=== PATIENT | female | born 1955 | race Caucasian/White ===

== ENCOUNTER 2020-03-29 09:40 | Outpatient (CLI) | payer MEDICARE, BC, SELFPAY ==
--- NOTE | 2020-03-29 11:30 | NEURO_ITS ---
Patient Number: [id number] Impression: # Complains of numbness of hands. # Bilateral Carpal Tunnel Syndrome, sensory more than motor. # No ulnar neuropathy. # Normal needle/EMG exam. Nerve Conduction Studies Anti Sensory Summary Table Stim Site NR Peak (ms) P-T Amp (?V) Site1 Site2 Delta-P (ms) Dist (cm) Delvin (m/s) Left Median Anti Sensory (2-3nd Digit) Wrist 5.2 17.1 Wrist 2-3nd Digit 5.2 14.0 27 Wrist 5.6 10.7 Wrist 2-3nd Digit 5.2 14.0 27 Right Median Anti Sensory (2-3nd Digit) Wrist 4.6 13.1 Wrist 2-3nd Digit 4.6 14.0 30 Wrist 4.8 38.4 Wrist 2-3nd Digit 4.6 14.0 30 Left Radial Anti Sensory (Base 1st Digit) Wrist 2.4 14.7 Wrist Base 1st Digit 2.4 0.0 Right Radial Anti Sensory (Base 1st Digit) Wrist 2.2 10.5 Wrist Base 1st Digit 2.2 0.0 Left Ulnar Anti Sensory (5th Digit) Wrist 2.9 55.2 Wrist 5th Digit 2.9 14.0 48 Right Ulnar Anti Sensory (5th Digit) Wrist 3.0 40.0 Wrist 5th Digit 3.0 14.0 47 Motor Summary Table Stim Site NR Onset (ms) O-P Amp (mV) Site1 Site2 Delta-0 (ms) Dist (cm) Delvin (m/s) Left Median Motor (Abd Poll Brev) Wrist 3.8 2.3 Elbow Wrist 5.3 28.0 53 Elbow 9.1 1.2 Right Median Motor (Abd Poll Brev) Wrist 4.0 3.7 Elbow Wrist 6.9 28.0 41 Elbow 10.9 1.2 Left Ulnar Motor (Abd Dig Minimi) Wrist 2.7 6.9 A Elbow Wrist 5.3 29.0 55 A Elbow 8.0 5.5 Right Ulnar Motor (Abd Dig Minimi) Wrist 3.0 5.1 A Elbow Wrist 5.6 29.0 52 A Elbow 8.6 4.0 F Wave Studies NR F-Lat (ms) L-R F-Lat (ms) Left Median (Mrkrs) (Abd Poll Brev) 29.20 0.59 Right Median (Mrkrs) (Abd Poll Brev) 29.79 0.59 Left Ulnar (Mrkrs) (Abd Dig Min) 29.09 0.86 Right Ulnar (Mrkrs) (Abd Dig Min) 29.96 0.86 EMG Side Muscle Nerve Root Ins Act Fibs Amp Dur Recrt Comment Right 1stDorInt Ulnar C8-T1 Nml Nml Nml Nml Nml Right Ext Indicis Radial (Post Int) C7-8 Nml Nml Nml Nml Nml Right Ext Digitorum Radial (Post Int) C7-8 Nml Nml Nml Nml Nml Right BrachioRad Radial C5-6 Nml Nml Nml Nml Nml Right PronatorTeres Median C6-7 Nml Nml Nml Nml Nml Right Abd Poll Brev Median C8-T1 Nml Nml Nml Nml Nml Left 1stDorInt Ulnar C8-T1 Nml Nml Nml Nml Nml Left Ext Indicis Radial (Post Int) C7-8 Nml Nml Nml Nml Nml Left Ext Digitorum Radial (Post Int) C7-8 Nml Nml Nml Nml Nml Left BrachioRad Radial C5-6 Nml Nml Nml Nml Nml Left PronatorTeres Median C6-7 Nml Nml Nml Nml Nml Left Abd Poll Brev Median C8-T1 Nml Nml Nml Nml Nml MTDD
== END 2020-03-29 09:41 | disposition home or self-care (01) ==
PROVIDERS: PCP Physician Assistant; Visit Provider Physician Assistant
DX: R20.2 Paresthesia of skin (principal); G56.03 Carpal tunnel syndrome, bilateral upper limbs
CPT/HCPCS: 95886; 95911

== ENCOUNTER → 2021-01-23 00:21 | Outpatient (CLI) | payer MEDICARE, MEDICAID, SELFPAY ==
[2021-01-23 18:31] LABS: SARS-CoV-2 RNA PCR Negative
== END ==
PROVIDERS: PCP Physician Assistant; Visit Provider Internal Medicine Gastroenterology
DX: Z01.812 Encounter for preprocedural laboratory examination (principal); Z20.822 Contact with and (suspected) exposure to COVID-19
CPT/HCPCS: C9803; U0003; U0005

== ENCOUNTER 2021-01-26 01:40 | Day surgery (SDC) | payer MEDICARE, MEDICAID, SELFPAY ==
[2021-01-16 09:58] VITALS: BMI 31.1
[2021-01-26 09:41] VITALS: BP 157/82; PULSE 76; RESP 18; TEMP 36.4; O2SAT 99
[2021-01-26] MEDS: LACTATED RINGERS 1,000 ML 150 ML IV CONT (09:45)
--- NOTE | 2021-01-26 10:35 | WPDANESEPPF ---
Anes - Initial Pre Proc Eval Procedure: Operation Date: 01/26/21 11:00 Proposed Procedures p Screening Colonoscopy - Serge Foster MD Date/Time: 01/26/21 10:35 Surgeon: Serge Foster MD Pre Op Diagnosis: Neoplasm Screening Patient Data Age: 65 Gender: F Height: 5 ft 7 in Weight: 95.9 kg Last Vital Signs Temp 97.5 F L 01/26/21 09:41 Pulse 76 01/26/21 09:41 Resp 18 01/26/21 09:41 BP 157/82 H 01/26/21 09:41 Pulse Ox 99 01/26/21 09:41 Allergies Allergy/AdvReac Type Severity Reaction Status Date / Time No Known Allergies Allergy Verified 01/26/21 09:40 Home Medications Medication Instructions Recorded Confirmed Type levothyroxine 75 mcg PO DAILY 01/16/21 01/26/21 History rosuvastatin 20 mg PO DAILY 01/16/21 01/26/21 History Patient hx anesthesia problems: none Family hx anesthesia problems: none [facility] Past Medical History Medical History (Updated 01/26/21 @ 10:32 by Jose Eduardo Nichole MD) Hyperlipidemia Hypothyroid Social History Social History Smoking status: Never smoker Alcohol intake: never Substance use: never Substance use type: does not use Living arrangements: with family Spiritual care concerns: No Anes - Eval Final PreProcedure Day of Procedure 01/26/21 10:35 Patient weight: overweight Heart: regular rate and rhythm Lungs: clear to auscultation Airway: Mallampati scale class II Neurological: alert and oriented Last oral intake: >/= 8 hours ASA classification: II Emergent: no Anesthetic plan: proceed Anesthesia type and monitoring: general GIVS and standard monitoring Informed Consent: The patient's anesthetic plan and its attendant risks and benefits were discussed with the patient/family/POA. Questions were solicited and answers provided to the satisfaction of the patient/family/POA.
--- NOTE | 2021-01-26 10:56 | PM.HPGS ---
History of Present Illness History of Present Illness Consent: Risks, benefits, and alternatives have been discussed and questions answered. Patient agrees to proceed with procedure. Chief complaint: Neoplasm Screening Narrative: Nisa Richter is a 65 year old female here for first screening colonoscopy Review of Systems Constitutional: Constitutional: Denies headache(s) and Denies weakness Eyes: Eyes: Denies blurry vision ENT: Reports Normal hearing present, Denies headache(s) and Denies neck pain Cardiovascular: Cardiovascular: Denies chest pain and Denies dyspnea Respiratory: Respiratory: Denies dyspnea Gastrointestinal: Gastrointestinal: Reports no additional gastrointestinal complaints Genitourinary: Genitourinary: Denies dysuria Musculoskeletal: Musculoskeletal: Denies neck pain Integumentary/Breasts: Skin/Breast: Denies dry skin Neurologic: Reports Normal hearing present, Denies headache(s) and Denies weakness Psychiatric: Psychiatric: Denies anxiety Endocrine: Endocrine: Denies change in body appearance Hematologic/Lymphatic: Hematologic/Lymphatic: Denies easy bleeding Allergic/Immunologic: Allergic/Immunologic: Denies urticaria PMFSH Past Medical History Medical History (Updated 01/26/21 @ 10:56 by Serge Foster MD) Colon cancer screening Hyperlipidemia Hypothyroid Social History Social History Smoking status: Never smoker Alcohol intake: never Substance use: never Substance use type: does not use Living arrangements: with family Spiritual care concerns: No Meds Home Medications and Allergies Home Medications Medication Instructions Recorded Confirmed Type levothyroxine 75 mcg PO DAILY 01/16/21 01/26/21 History rosuvastatin 20 mg PO DAILY 01/16/21 01/26/21 History Allergies Allergy/AdvReac Type Severity Reaction Status Date / Time No Known Allergies Allergy Verified 01/26/21 09:40 Vital Signs Vital Signs - 24 hr 01/26/21 09:41 Temperature 97.5 F L Pulse Rate 76 Respiratory Rate 18 Blood Pressure 157/82 H Pulse Oximetry 99 Exam Const: General: comfortable and no acute distress HENMT: General nose exam: Normal nares present Eyes: General: appearance normal, both eyes and all related structures Neck: Neck: no JVD Resp: Auscultation: clear to auscultation bilaterally Cardio: Rate: regular rate Rhythm: regular rhythm GI: Inspection: non-distended GI Palp: Yes Soft to palpation Skin: General skin exam: normal color Neuro: General: gait normal Speech: normal speech Extrem: General: normal to inspection Psych: Mental Status: mental status grossly normal Assessment and Plan Assessment and plan (1) Colon cancer screening: Code(s): Z12.11 - Encounter for screening for malignant neoplasm of colon Status: Acute Assessment and Plan: proceed with colonoscopy
[2021-01-26 11:20] VITALS: BP 101/55; PULSE 61; RESP 20; O2SAT 99
[2021-01-26 11:30] VITALS: BP 99/62; PULSE 60; RESP 20; O2SAT 99
[2021-01-26 11:40] VITALS: BP 129/61; PULSE 54; RESP 20; O2SAT 100
== END 2021-01-26 11:50 | disposition home or self-care (01) ==
PROVIDERS: PCP Physician Assistant; Visit Provider Internal Medicine Gastroenterology
PROC: 0DJD8ZZ Inspection of Lower Intestinal Tract, Via Natural or Artificial Opening Endoscopic (ICD-10-PCS; CPT 45378; principal; 2021-01-26 11:00)
DX: Z12.11 Encounter for screening for malignant neoplasm of colon (principal); D12.2 Benign neoplasm of ascending colon; E78.5 Hyperlipidemia, unspecified; E03.9 Hypothyroidism, unspecified; K64.8 Other hemorrhoids
CPT/HCPCS: 45385; 88305; C9803; J2704; J7120; U0003; U0005

== ENCOUNTER 2021-03-20 15:48 | Outpatient (CLI) | payer MEDICARE, SELFPAY ==
--- NOTE | ~2021-03-20 | MM_ITS ---
EXAMINATION: MM screening ernesto BI w marcela HISTORY: Screening mammogram TECHNIQUE: Craniocaudal and mediolateral oblique 3-D tomosynthesis images were obtained and synthetic 2-D images were generated. CAD analysis was submitted and interpreted. COMPARISON: No prior mammogram is available for comparison at this institution. BREAST PARENCHYMAL COMPOSITION: The breasts are almost entirely fatty. FINDINGS: There is no evidence of suspicious mass, calcification, or architectural distortion to sugg est malignancy in either breast. There has been no suspicious interval change. IMPRESSION: 1. No mammographic evidence of malignancy. 2. Recommend routine screening mammography in one year. BI-RADS Category 1: Negative Reviewed, dictated and finalized at location A.
== END 2021-03-20 15:49 | disposition home or self-care (01) ==
LOC: ANHIMG 15:51
PROVIDERS: PCP Physician Assistant; Visit Provider Physician Assistant
DX: Z12.31 Encounter for screening mammogram for malignant neoplasm of breast (principal)
CPT/HCPCS: 77063; 77067

== ENCOUNTER 2022-08-18 16:18 | Emergency (ER) | payer MEDICARE, SELFPAY ==
--- NOTE | 2022-08-18 16:23 | ED.URI ---
HPI - URI/Sore Throat General Chief Complaint: Upper Respiratory Infection Stated Complaint: COUGH/CONGESTION/R EARACHE Time Seen by Provider: 08/18/22 16:31 Source: patient and RN notes reviewed Mode of arrival: ambulatory Limitations: no limitations History of Present Illness HPI Narrative: 67-year-old female presents to the [facility] with complaints of cough, congestion and right ear pain. Patient reports that she has had cough congestion and allergy symptoms for about 6 weeks. Woke up this morning with a sharp pain to the right ear. Denies fevers. No chest pain or abdominal pain. Has tried multiple [id number] products to treat her allergies/cough over the last 6 weeks. Also reports nasal congestion MD elicited complaint: cough, rhinorrhea, nasal congestion and other (Right ear pain) Related Data Home Medications Medication Instructions Recorded Confirmed levothyroxine 75 mcg tablet 75 mcg PO DAILY 01/16/21 08/18/22 rosuvastatin 20 mg tablet 20 mg PO DAILY 01/16/21 08/18/22 Allergies Allergy/AdvReac Type Severity Reaction Status Date / Time No Known Allergies Allergy Verified 08/18/22 16:41 Review of Systems Review of Systems: All systems reviewed & are unremarkable except as noted in HPI and below Constitutional: Constitutional: Reports no additional constitutional complaints, Denies chills and Denies fever(s) Eyes: Eyes: Reports no additional eye complaints ENT: Reports as per HPI and Reports nasal congestion Cardiovascular: Cardiovascular: Reports no additional cardiovascular complaints Respiratory: Respiratory: Reports as per HPI, Reports chest congestion and Reports cough Gastrointestinal: Gastrointestinal: Reports no additional gastrointestinal complaints Musculoskeletal: Musculoskeletal: Reports no additional musculoskeletal complaints Integumentary/Breasts: Skin/Breast: Reports system reviewed and no additional complaints, except as docu Neurologic: Reports system reviewed and no additional complaints, except as documented Psychiatric: Psychiatric: Reports no additional psychiatric complaints Allergic/Immunologic: Allergic/Immunologic: Reports no additional allergic/immunologic complaints PMFSH Past Medical History Medical History Colon cancer screening Hyperlipidemia Hypothyroid Social History Social History Smoking status: Never smoker Alcohol intake: never Substance use: never Substance use type: does not use Spiritual care concerns: No Comments At the time of my signature, I reviewed and agree with the nursing past medical, surgical, social, and family history. There is no relevant family history pertinent to the patient complaint. Exam Const: General: healthy appearing, no acute distress, alert and well nourished Nutritional Appearance: well nourished Orientation/consciousness: patient oriented x3 Limitations: no limitations HENMT: Head: normal to inspection Ears: external ears normal, EAC's normal and TM abnormal bulging on the right, erythematous on the right and with loss of landmarks on the right Face/Nose/Sinus: Normal external nose present and Normal nares present Face and sinus: normal facial exam Mouth: Yes Normal oral and palatal mucosa present, Yes lip normal and Yes moist mucous membranes Throat: posterior oropharynx normal and uvula midline Eyes: General: appearance normal, both eyes and all related structures Pupils: Equal, round and reactive pupils present Neck: Neck: normal visual inspection, no lymphadenopathy and no meningeal signs Chest: Chest palpation & inspection: normal inspection of the chest Resp: Effort & Inspection: normal respiratory effort and no use of accessory muscles Auscultation: clear to auscultation bilaterally, no crackles, no rales, no rhonchi and no wheezes Cardio: Rate: regular rate Rhythm: regular rhyt
[2022-08-18 16:29] VITALS: BP 150/75; PULSE 70; RESP 16; TEMP 36.9; O2SAT 99
== END 2022-08-18 16:48 | disposition home or self-care (01) ==
PROVIDERS: Emergency Provider Nurse Practitioner; PCP Physician Assistant
DX: H66.91 Otitis media, unspecified, right ear (principal); J32.9 Chronic sinusitis, unspecified; E78.5 Hyperlipidemia, unspecified; E03.9 Hypothyroidism, unspecified
CPT/HCPCS: 99213; G0463

== ENCOUNTER 2023-07-01 07:18 | Outpatient (CLI) | payer MEDICARE, SELFPAY ==
--- NOTE | ~2023-07-01 | MM_ITS ---
EXAMINATION: MM screening ernesto BI w marcela HISTORY: Screening mammogram TECHNIQUE: Craniocaudal and mediolateral oblique 3-D tomosynthesis images were obtained and synthetic 2-D images were generated. CAD analysis was submitted and interpreted. COMPARISON: 03/20/2021 bilateral screening mammogram BREAST PARENCHYMAL COMPOSITION: The breasts are almost entirely fatty. FINDINGS: There is no evidence of suspicious mass, calcification, or architectural distortion to sugg est malignancy in either breast. There has been no suspicious interval change. IMPRESSION: 1. No mammographic evidence of malignancy. 2. Recommend routine screening mammography in one year. BI-RADS Category 1: Negative Reviewed, dictated and finalized at location A.
== END 2023-07-01 07:19 | disposition home or self-care (01) ==
PROVIDERS: PCP Physician Assistant; Visit Provider Physician Assistant
DX: Z12.31 Encounter for screening mammogram for malignant neoplasm of breast (principal)
CPT/HCPCS: 77063; 77067

== ENCOUNTER 2023-09-04 18:05 | Emergency (ER) | payer MEDICARE, SELFPAY ==
[2023-09-04 18:21] VITALS: BP 146/71; PULSE 64; RESP 16; TEMP 37.3; O2SAT 98
--- NOTE | 2023-09-04 18:35 | ED.GENADULT ---
HPI - General Adult General Chief complaint: Eye Problems Stated complaint: COLD SYMPTOMS/EYE DRAINAGE Source: patient Mode of arrival: ambulatory Limitations: no limitations History of Present Illness HPI narrative: 68-year-old female presented for complaint of bilateral eye redness and discharge for 2 days. Eyes are itching and burning with yellow drainage. Started on right eye, moved to left. Reports eyes were matted shut this morning. Also reports cold symptoms for one week and right ear popping. Denies vision changes, ear pain or drainage, tinnitus, dizziness, sob, wheezing, n/v/d/f/c. Taking Aleve-D for symptoms. Endorses exposure to grand children who have been sick. Related Data Home Medications Medication Instructions Recorded Confirmed levothyroxine 75 mcg tablet 75 mcg PO DAILY 01/16/21 09/04/23 rosuvastatin 20 mg tablet 20 mg PO DAILY 01/16/21 09/04/23 Allergies Allergy/AdvReac Type Severity Reaction Status Date / Time No Known Allergies Allergy Verified 09/04/23 18:18 Review of Systems Review of Systems: CONSTITUTIONAL: Denies body aches, fever, chills EYES:Endorses drainage redness and pain to eyes; Denies FB sensation, photophobia, visual changes or swelling ENT: reports rhinorrhea, denies sore throat, or otalgia. CARDIOVASCULAR: Denies chest pain, palpitations RESPIRATORY: Denies cough or dyspnea. GASTROINTESTINAL: Denies abdominal pain, nausea, vomiting, or diarrhea. SKIN: Denies rash, itching, or wounds. MUSCULOSKELETAL: Denies back pain, joint pain, or myalgia. NEUROLOGIC: Denies headache, numbness, tingling, or weakness. All systems reviewed & are unremarkable except as noted in HPI and below PMFSH Past Medical History Medical History Colon cancer screening Hyperlipidemia Hypothyroid Social History Social History Smoking status: Never smoker Alcohol intake: never Substance use: never Substance use type: does not use Living arrangements: with family Spiritual care concerns: No Comments At time of signature, I have reviewed and agree with nursing past medical, surgical, social and family history unless otherwise noted. Please see nursing chart for further information. There is no relevant family history pertinent to the presenting complaint Exam Narrative: GENERAL: Well-appearing HEAD: Normocephalic, atraumatic. EYES: bilateral conjunctival injection, and purulent drainage; mild right upper eye lid swelling and erythema. EOMI. PERRLA. Lid eversion shows no FB ENT: Mucous membranes pink and moist. No rhinorrhea. TMs normal bilaterally. Throat normal. Uvula midline. CHEST: Clear to auscultation. HEART: Regular rate and rhythm. ABDOMEN: Soft, nontender, nondistended SKIN: Warm, dry, no rash. Normal skin turgor. NEURO: No focal deficits. Alert and oriented x3 PSYCH: Normal affect. Course Course Emergency Course: Patient is aware of diagnosis, understands and agrees to treatment plan. Anticipatory guidance given. Patient agrees to follow-up as directed and is aware of reasons to seek care at the emergency department. Portions of this record may have been created with voice recognition software Level of Care: Express Care Visit Vital Signs Vital signs: Vital Signs Temperature 99.1 F 09/04/23 18:21 Pulse Rate 64 09/04/23 18:21 Respiratory Rate 16 09/04/23 18:21 Blood Pressure 146/71 H 09/04/23 18:21 Pulse Oximetry 98 09/04/23 18:21 Temperature 99.1 F 09/04/23 18:21 Pulse Rate 64 09/04/23 18:21 Respiratory Rate 16 09/04/23 18:21 Blood Pressure 146/71 H 09/04/23 18:21 Pulse Oximetry 98 09/04/23 18:21 Medical Decision Making MDM Narrative Medical decision making narrative: Discussed physical exam findings consistent with bacterial conjunctivitis. Advised supportive measures and signs/symptoms
== END 2023-09-04 18:48 | disposition home or self-care (01) ==
PROVIDERS: Emergency Provider Nurse Practitioner Family; PCP Physician Assistant
DX: H10.9 Unspecified conjunctivitis (principal); E78.5 Hyperlipidemia, unspecified; E03.9 Hypothyroidism, unspecified; Z79.899 Other long term (current) drug therapy
CPT/HCPCS: 99213; G0463

== ENCOUNTER 2024-07-17 09:06 | Emergency (ER) | payer MEDICARE, SELFPAY ==
[2024-07-17 09:30] VITALS: BP 144/77; PULSE 84; RESP 16; TEMP 36.4; O2SAT 98
[2024-07-17 09:46] LABS: EDSTREPNEGPOS1 Negative (Negative)
--- NOTE | 2024-07-17 09:46 | ED.URI ---
HPI - URI/Sore Throat General Chief Complaint: Upper Respiratory Infection Stated Complaint: throat swollen Time Seen by Provider: 07/17/24 09:46 Source: patient and RN notes reviewed Mode of arrival: ambulatory Limitations: no limitations History of Present Illness HPI Narrative: 69-year-old female presents with concern for feeling of a swollen throat since this morning. She denies sore throat. She denies fever, aches, chills, sweats, headache, runny nose, stuffy nose. Reports history of something similar in the past or her throat was swollen and she had to take steroids. She denies swollen lips, swollen tongue, trouble breathing MD elicited complaint: other (Swollen throat) Related Data Home Medications Medication Instructions Recorded Confirmed levothyroxine 75 mcg tablet 75 mcg PO DAILY 01/16/21 07/17/24 rosuvastatin 20 mg tablet 20 mg PO DAILY 01/16/21 07/17/24 Allergies Allergy/AdvReac Type Severity Reaction Status Date / Time No Known Allergies Allergy Verified 07/17/24 09:26 Review of Systems Review of Systems: CONSTITUTIONAL: Denies malaise, chills, sweats, or fever. EYES: Denies visual changes, redness, or discharge. ENT: Denies rhinorrhea, congestion, sinus pain, otalgia and sore throat. Reports swollen throat CARDIOVASCULAR: Denies chest pain, palpitations, or edema. RESPIRATORY: Denies cough. Denies dyspnea. GASTROINTESTINAL: Denies abdominal pain, nausea, vomiting, diarrhea SKIN: Denies rash or itching. MUSCULOSKELETAL: Denies myalgia. NEUROLOGIC: Denies headache. All systems reviewed & are unremarkable except as noted in HPI and below PMFSH Past Medical History Medical History Colon cancer screening Hyperlipidemia Hypothyroid Social History Social History Smoking status: Never smoker Alcohol intake: never Substance use: never Substance use type: does not use Living arrangements: with family Spiritual care concerns: No Comments At time of signature, agree with nursing past medical, surgical, social and family history. There is no relevant family history pertinent to the presenting complaint Exam Narrative: GENERAL: Well-appearing, well-nourished, and in no acute distress. HEAD: Normocephalic EYES: PERRLA, conjunctivae clear ENT: Nares clear. Mucous membranes moist. TM pearly keene with sharp light reflex bilaterally; no tragal tenderness. Oropharynx not erythematous without lesions. Tonsils not enlarged and without exudate, no drooling, no hoarseness, no trismus, uvula midline, mild uvular edema. No lip swelling, tongue swelling, angioedema noted NECK: Supple. No lymphadenopathy CHEST: Clear to auscultation, breath sounds equal. No wheezing, rhonchi, rales, or stridor. No respiratory distress, speaks in full sentences. HEART: Regular rate and rhythm. No murmur heard. SKIN: Warm, dry, no rash. NEURO: Alert and oriented x3. PSYCH: Normal mood and affect Course Course Emergency Course: Patient is aware of diagnosis, understands and agrees to treatment plan. Anticipatory guidance given. Patient agrees to follow-up as directed and is aware of reasons to seek care at the emergency department. Portions of this record may have been created with voice recognition software Level of Care: Express Care Visit Vital Signs Vital signs: Vital Signs Temperature 97.6 F 07/17/24 09:30 Pulse Rate 84 07/17/24 09:30 Respiratory Rate 16 07/17/24 09:30 Blood Pressure 144/77 H 07/17/24 09:30 Pulse Oximetry 98 07/17/24 09:30 Temperature 97.6 F 07/17/24 09:30 Pulse Rate 84 07/17/24 09:30 Respiratory Rate 16 07/17/24 09:30 Blood Pressure 144/77 H 07/17/24 09:30 Pulse Oximetry 98 07/17/24 09:30 Reviewed. MDM - URI/Sore Throat MDM Narrative Medical decision making narrative: Differential diagnosis considered: Kirk virus, strep ph
[2024-07-17] MEDS: predniSONE 20 MG TABLET 60 MG PO (09:55)
== END 2024-07-17 10:03 | disposition home or self-care (01) ==
PROVIDERS: Emergency Provider Nurse Practitioner; PCP Physician Assistant
DX: K13.79 Other lesions of oral mucosa (principal); E78.5 Hyperlipidemia, unspecified; E03.9 Hypothyroidism, unspecified
CPT/HCPCS: 87081; 87880; 99213; G0463; J7512